=== PATIENT | female | born 1995 | race African-American/Black ===

== ENCOUNTER 2017-03-15 16:38 | Emergency (ER) | payer MEDICAID ==
[~2017-03-15] VITALS: Ht 157.5 cm; Wt 56.2 kg
[~2017-03-15 16:38] MED LIST: ALBUTEROL SULF8.5 GM INH; BACTRIM DS TAB1 EAC1 ORAL; CEPHALEXIN500 MG PO; CIPRO500 MG PO; DIFLUCAN100 MG ORAL; DIFLUCAN150 MG PO; DOXYCYCLINE HY100 M6 PO; FLUCONAZOLE150 MG ORAL; METROGEL-VAGINA70 G1 VAGIN; METRONIDAZOLE500 MG ORAL; NKM; PEPCID40 MG PO; PYRIDIUM100 MG ORAL; VIBRAMYCIN100 MG ORAL
[2017-03-15 18:09] VITALS: BP 107/69
[2017-03-15] MEDS ORDERED: ROBAXIN-750750 MG PO (18:40)
[2017-03-15] MEDS ORDERED: IBUPROFEN600 MG ORAL (18:40)
[2017-03-15 18:42] VITALS: BP 107/69
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
--- NOTE | 2017-03-16 12:12 | Diagnostic Imaging Report ---
Indication: Pain Findings: 3 views of the right elbow were obtained. No acute fractures, malalignment, erosions or periostitis are identified. Bone mineralization is within normal limits. Soft tissues are unremarkable. Impression: Negative examination of the elbow.
--- NOTE | 2017-03-16 13:28 | Diagnostic Imaging Report ---
Indications: hip pain Findings: Two views of the left hip were obtained. No acute fracture is demonstrated. Alignment of the hip is within normal limits. Soft tissues are unremarkable. Intrauterine device noted. Impression: Negative examination of the hip.
== END 2017-03-15 18:42 | disposition home or self-care (01) ==
LOC: EMR 17:19
DX: S70.02XA Contusion of left hip, initial encounter (principal); S16.1XXA Strain of muscle, fascia and tendon at neck level, initial encounter; S46.911A Strain of unspecified muscle, fascia and tendon at shoulder and upper arm level, right arm, initial encounter; J45.909 Unspecified asthma, uncomplicated; V43.52XA Car driver injured in collision with other type car in traffic accident, initial encounter; Y92.410 Unspecified street and highway as the place of occurrence of the external cause
CPT/HCPCS: 73502; 81025; 99284

== ENCOUNTER 2018-02-08 21:03 | Emergency (ER) | payer MEDICAID ==
[~2018-02-08 21:03] MED LIST changes: +IBUPROFEN600 MG ORAL; +ROBAXIN-750750 MG PO
--- NOTE | 2018-02-09 05:27 | Emergency Room Report ---
History of Present Illness General Chief Complaint: To Be Triaged Present Illness Allergies: Coded Allergies: No Known Allergies (Unverified , 01/22/13) Nursing Documentation-H Hx Asthma: Yes Medical Decision Making Diagnostic Impression: Primary Impression: Patient left without being seen ER Course Patient left without being seen Status: unchanged Disposition: LEFT W/OUT BEING SEEN Condition: Unknown [facility]errals: [facility]ERR[facility] ([facility]P) Jassi Campbell MD Feb 09, 2018 05:27
[2018-02-09] MEDS ORDERED: IBUPROFEN600 MG ORAL (16:03)
[2018-02-09] MEDS ORDERED: ROBAXIN-750750 MG PO (16:03)
== END 2018-02-08 21:30 | disposition left against medical advice (07) ==
LOC: EMR 21:30
DX: R07.9 Chest pain, unspecified (principal); Z53.21 Procedure and treatment not carried out due to patient leaving prior to being seen by health care provider

== ENCOUNTER 2018-02-09 14:47 | Emergency (ER) | payer MEDICAID ==
[~2018-02-09] VITALS: Ht 157.5 cm; Wt 45.4 kg
[2018-02-09 15:30] VITALS: BP 105/63
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
[2018-02-09] MEDS ORDERED: ROBAXIN-750750 MG PO (16:03)
[2018-02-09] MEDS ORDERED: IBUPROFEN600 MG ORAL (16:03)
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
== END 2018-02-09 16:55 | disposition home or self-care (01) ==
LOC: EMR 15:22
DX: S40.012A Contusion of left shoulder, initial encounter (principal); Y04.2XXA Assault by strike against or bumped into by another person, initial encounter; Y92.9 Unspecified place or not applicable; J45.909 Unspecified asthma, uncomplicated
CPT/HCPCS: 71045; 72070; 99284

== ENCOUNTER 2018-02-27 13:36 | Emergency (ER) | payer MEDICAID ==
[~2018-02-27] VITALS: Ht 157.5 cm; Wt 43.5 kg
--- NOTE | 2018-02-27 13:59 | Emergency Room Report ---
History of Present Illness General Chief Complaint: Wound Recheck/Suture Removal Source: Patient Present Illness [facility] Patient presented for wound check. Patient reportedly had sutures placed to her forehead approximate days ago. Patient denies any fever or severe headache. She denies any other complaints. Allergies: Coded Allergies: No Known Allergies (Unverified , 01/22/13) Patient History Past Medical History: see triage record Last Menstrual Period: 02/24/2018 Reviewed Nursing Documentation: PMH: Agreed; PSxH: Agreed Nursing Documentation-PMH Past Medical History: No History, Except For Hx Asthma: Yes Review of Systems All Other Systems: negative except mentioned in HPI Physical Exam Vital Signs Date Time Temp Pulse Resp B/P (MAP) Pulse Ox O2 Delivery O2 Flow Rate FiO2 02/27/18 13:39 98.6 86 16 98/66 97 Room Air 98.6 General Appearance: well appearing, no apparent distress, alert, GCS 15 Head: normocephalic, atraumatic ENT: hearing grossly normal, normal voice Neck: full range of motion, supple Respiratory: no respiratory distress, speaking full sentences Cardiovascular #1: normal inspection Gastrointestinal: normal inspection Musculoskeletal: no calf tenderness Neurologic: normal inspection, alert, oriented x3, responsive, 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 Differential diagnosis included was not limited to infected wound, nonhealed wound, neuroma, healed wound. Laceration appears to be well-healed. Sutures removed with forceps. The patient is advised follow-up as needed. Last Vital Signs Date Time Temp Pulse Resp B/P (MAP) Pulse Ox O2 Delivery O2 Flow Rate FiO2 02/27/18 13:39 98.6 86 16 98/66 97 Room Air 98.6 Status: improved Disposition: HOME, SELF-CARE Condition: Stable Bruce Willis MD Feb 27, 2018 13:59
[2018-02-27 14:10] VITALS: BP 98/66
[2018-02-27 14:11] VITALS: BP 98/66
== END 2018-02-27 14:13 | disposition home or self-care (01) ==
LOC: EMR 14:08
DX: S11.91XD Laceration without foreign body of unspecified part of neck, subsequent encounter (principal); X58.XXXD Exposure to other specified factors, subsequent encounter; Z48.02 Encounter for removal of sutures
CPT/HCPCS: 99281

== ENCOUNTER 2018-03-17 09:34 | Emergency (ER) | payer MEDICAID ==
[~2018-03-17] VITALS: Ht 160 cm; Wt 45.8 kg
[2018-03-17 10:01] VITALS: BP 107/71
--- NOTE | 2018-03-17 10:33 | Emergency Room Report ---
History of Present Illness General Chief Complaint: Upper Respiratory Illness Source: Patient Present Illness HPI This patient c/o 2-3 days of viral URI symptoms including sore throat, rhinitis , nasal congestion, non productive cough. Malaise, myalgias, possibly tactile fever. The patient has no vomiting, chest pain or SOB. No travel history, leg pain/swelling. Allergies: Coded Allergies: No Known Allergies (Unverified , 01/22/13) Patient History Last Menstrual Period: 03/14/18 Nursing Documentation-[facility] Hx Asthma: Yes Review of Systems Constitutional: Denies: fever Eye: Denies: acuity changes Respiratory: Denies: cough, shortness of breath Cardiovascular: Denies: chest pain Gastrointestinal: Denies: nausea, vomiting Skin: Denies: rash Neurological: Denies: headache Physical Exam Vital Signs Date Time Temp Pulse Resp B/P (MAP) Pulse Ox O2 Delivery O2 Flow Rate FiO2 03/17/18 09:37 98.2 68 18 107/71 97 Room Air 98.2 General Appearance: well appearing, no apparent distress Head: normocephalic, atraumatic ENT: hearing grossly normal, normal pharynx, normal voice, moist mucus membranes, nasal congestion Neck: full range of motion, supple Respiratory: no respiratory distress, speaking full sentences Musculoskeletal: no calf tenderness Neurologic: alert, normal gait Psychiatric: mood/affect normal Skin: no rash Medical Decision Making Diagnostic Impression: Primary Impression: Upper respiratory infection Last Vital Signs Date Time Temp Pulse Resp B/P (MAP) Pulse Ox O2 Delivery O2 Flow Rate FiO2 03/17/18 10:01 98.2 88 18 107/71 97 Room Air 98.2 Disposition: HOME, SELF-CARE Condition: Stable Marino Oswald M.D. Mar 17, 2018 10:33
[2018-03-17 11:10] VITALS: BP 110/60
== END 2018-03-17 11:12 | disposition home or self-care (01) ==
LOC: EMR 10:36
DX: J06.9 Acute upper respiratory infection, unspecified (principal); J45.909 Unspecified asthma, uncomplicated
CPT/HCPCS: 99282

== ENCOUNTER 2018-05-11 12:10 | Emergency (ER) | payer MEDICAID ==
[~2018-05-11] VITALS: Ht 157.5 cm; Wt 47.6 kg
[2018-05-11 12:20] VITALS: BP 106/62
[2018-05-11] MEDS ORDERED: IBUPROFEN600 MG ORAL (12:34)
[2018-05-11] MEDS ORDERED: NORCO 5-325 TA1 EACH ORAL (12:34)
[2018-05-11] MEDS ORDERED: Norco 5mg/325mg tab ORAL ONE (12:45)
[2018-05-11 13:20] VITALS: BP 132/68
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
== END 2018-05-11 13:20 | disposition home or self-care (01) ==
LOC: EMR 12:30
DX: S39.012A Strain of muscle, fascia and tendon of lower back, initial encounter (principal); V43.52XA Car driver injured in collision with other type car in traffic accident, initial encounter; Y92.410 Unspecified street and highway as the place of occurrence of the external cause; R51 Headache; J45.909 Unspecified asthma, uncomplicated
CPT/HCPCS: 99282

== ENCOUNTER 2019-04-05 16:45 | Emergency (ER) | payer MEDICAID ==
[~2019-04-05] VITALS: Ht 157.5 cm; Wt 49.9 kg
[~2019-04-05 16:45] MED LIST changes: +NORCO 5-325 TA1 EACH ORAL
[2019-04-05 16:59] VITALS: BP 110/70
--- NOTE | 2019-04-05 17:08 | NUR ---
ED Nurse Note: Patient walked into c/o vaginal soreness and pain, bleeding, burning sensation. patient reports she used raw vinegar for cleaning her vaginal area. Pt came in due to vaginal soreness, bleeding, burning sensation after using raw vinager for cleaning. 3 weeks ago.
--- NOTE | 2019-04-05 17:49 | Emergency Room Report ---
History of Present Illness General Chief Complaint: Female Urogenital Problems Source: Patient Present Illness HPI 23 YO female presents to the ED c/o vaginal burning sensation after using vinegar as a cleaning agent. Pt. reports She had no prior symptoms before using vinegar, she denies malodor or vaginal d/c. Pt. states immediately afterward she experienced, erythema, burning and itching. She attempted to relieve her symptoms with OTC vagisil cream which did not provide any symptomatic relief. Pt. denies fevers or chills. reports itching is severe and burning is 10/10 in severity. symptom onset was yesterday. She reports only significant history is a recent 3 weeks ago which was a pill without complications. Pt. denies fevers, chills, blisters, swollen tender lymph nodes or open wounds. Pt. denies hx of immune compromise, STI or current . Pt. states some dysuria. Allergies: Coded Allergies: No Known Allergies (Unverified , 01/22/13) Patient History Past Medical History: see triage record Past Surgical History: none Pertinent Family History: none Now: No - 3 weeks ago. Reviewed Nursing Documentation: PMH: Agreed; PSxH: Agreed Nursing Documentation-PMH Past Medical History: No History, Except For Hx Asthma: Yes Review of Systems All Other Systems: negative except mentioned in HPI Physical Exam Vital Signs Date Time Temp Pulse Resp B/P (MAP) Pulse Ox O2 Delivery O2 Flow Rate FiO2 04/05/19 16:59 98.8 73 16 110/70 100 Room Air Sp02 EP Interpretation: reviewed, normal General Appearance: no apparent distress, alert, GCS 15, non-toxic Head: normocephalic, atraumatic Eyes: bilateral eye normal inspection, bilateral eye PERRL ENT: hearing grossly normal, normal voice Neck: full range of motion Respiratory: lungs clear, normal breath sounds, speaking full sentences Cardiovascular #1: regular rate, rhythm Gastrointestinal: normal bowel sounds, non tender, soft Genitourinary: normal inspection, no CVA tenderness, adnexa normal, other - erythema to the mucous membranes of the vaginal vault, and the vulvula, severe sensitivity throughtout, no CMT. There are some excoriations noted. unable to determine d/c as pt. has monistat applied. Musculoskeletal: back normal, gait/station normal, normal range of motion, non- tender Neurologic: alert, oriented x3, responsive, motor strength/tone normal, sensory intact, normal gait, speech normal, grossly normal Psychiatric: judgement/insight normal Lymphatic: no adenopathy Medical Decision Making PA Attestation Dr. Campbell is my supervising Physician whom patient management has been discussed with. Diagnostic Impression: Primary Impression: Vaginitis and vulvovaginitis Additional Impressions: Chemical burn UTI (lower urinary tract infection) ER Course 23 YO female presents to the ED c/o vaginal burning sensation after using vinegar as a cleaning agent. Pt. reports She had no prior symptoms before using vinegar, she denies malodor or vaginal d/c. Pt. states immediately afterward she experienced, erythema, burning and itching. She attempted to relieve her symptoms with OTC vagisil cream which did not provide any symptomatic relief. Pt. denies fevers or chills. reports itching is severe and burning is 10/10 in severity. symptom onset was yesterday. She reports only significant history is a recent 3 weeks ago which was a pill without complications. Pt. denies fevers, chills, blisters, swollen tender lymph nodes or open wounds. Pt. denies hx of immune compromise, STI or current . Pt. states some dysuria. Ddx considered but are not limited to UTi , Pyelo, STI, Stone, Cystitis, vaginal laceration, vaginitis. Vital signs: are WNL, pt. is afebrile H& PE are most consistent with: Chemical Burn Vaginitis, and will r/o UTI as well. ORDERS: - UA labs are attached --- most indicative of contamination: presence of equal amounts of bacteria and squamous cells, no elevation in inflammatory markers, nitrite negative. ED INTERVENTIONS: - DISCHARGE: At this time pt. is stable for d/c to home. Will provide printed patient care instructions, and any necessary prescriptions. Care plan and follow up instructions have been discussed with the patient prior to discharge. discussed with the patient prior to discharge. Labs Test 04/05/19 17:13 Urine Color Yellow Urine Appearance Clear Urine pH 6.5 (4.5-8.0) Urine Specific [place] 1.015 (1.005-1.035) Urine Protein 2+ (NEGATIVE) Urine Glucose (UA) Negative (NEGATIVE) Urine Ketones Negative (NEGATIVE) Urine Blood 1+ (NEGATIVE) Urine Nitrite Negative (NEGATIVE) Urine Bilirubin Negative (NEGATIVE) Urine Urobilinogen 1 MG/DL (0.0-1.0) Urine Leukocyte Esterase 1+ (NEGATIVE) Urine RBC 0-2 /HPF (0 - 2) Urine WBC 2-4 /HPF (0 - 2) Urine Squamous Epithelial Cells Few /LPF (NONE/OCC) Urine Bacteria Moderate /HPF (NONE) Last Vital Signs Date Time Temp Pulse Resp B/P (MAP) Pulse Ox O2 Delivery O2 Flow Rate FiO2 04/05/19 16:59 98.8 73 16 110/70 (83) 100 Room Air Disposition: HOME, SELF-CARE Condition: Stable Scripts Fluconazole (FLUCONAZOLE) 100 Mg Tablet 100 MG ORAL DAILY for 3 Days, #3 TAB 0 Refills Prov: Ama Mariano 04/05/19 Metronidazole* (FLAGYL*) 500 Mg Tablet 500 MG ORAL BID for 5 Days, #10 TAB Prov: Ama Mariano 04/05/19 Referrals: [facility],REFERRING (PCP) Departure Forms: Return to Work Return to Work Date: Apr 07, 2019 Work Restrictions: None Return to Full Activity: Apr 07, 2019 Patient Instructions: Vaginitis, Urinary Tract Infection Additional Instructions: Take medications as directed. Follow up with a Primary Care Provider in 3-5 days, even if your symptoms have resolved. --Please review list of primary care clinics, if you do not already have a primary care provider Return sooner to ED if new symptoms occur, or current symptoms become worse. - Please note that this Emergency Department Report was dictated using [employer] beamer technology software, occasionally this can lead to erroneous entry secondary to interpretation by the dictation equipment. Ama Mariano Apr 05, 2019 17:49
[2019-04-05 17:56] LABS: APPEARANCE,URINE CLEAR; BILIRUBIN, URINE NEGATIVE (NEGATIVE); GLUCOSE, URINE (UA) NEGATIVE (NEGATIVE); KETONES,URINE NEGATIVE (NEGATIVE); LEUKOCYTE ESTERASE ,URINE 1+ (NEGATIVE); NITRITE,URINE NEGATIVE (NEGATIVE); PH,URINE 6.5 (4.5-8.0); PROTEIN,URINE 2+ (NEGATIVE); UROBILINOGEN,URINE 1 MG/DL (0.0-1.0)
[2019-04-05 17:59] LABS: COLOR,URINE YELLOW
[2019-04-05] MEDS ORDERED: FLUCONAZOLE100 MG ORAL (19:20)
[2019-04-05] MEDS ORDERED: METRONIDAZOLE500 MG ORAL (19:20)
[2019-04-05 19:33] VITALS: BP 110/70
--- NOTE | 2019-04-05 19:33 | NUR ---
ER DISCHARGE NOTE: Patient is cleared to be discharged per TACO GRANT , pt is aox4, on room air, with stable vital signs. pt was given dc and prescription instructions, pt was able to verbalize understanding, pt id band removed without complications. pt is able to ambulate with steady gait. pt took all belongings.
== END 2019-04-05 19:25 | disposition home or self-care (01) ==
LOC: EMR 17:11
DX: N76.0 Acute vaginitis (principal); N39.0 Urinary tract infection, site not specified; T28.3XXA Burn of internal genitourinary organs, initial encounter; T79.9XXA Unspecified early complication of trauma, initial encounter; X08.8XXA Exposure to other specified smoke, fire and flames, initial encounter; Y92.9 Unspecified place or not applicable
CPT/HCPCS: 81003; 87086; 99283

== ENCOUNTER 2019-11-16 13:56 | Emergency (ER) | payer MEDICAID ==
[~2019-11-16] VITALS: Ht 157.5 cm; Wt 45.4 kg
[~2019-11-16 13:56] MED LIST changes: +FLUCONAZOLE100 MG ORAL
[2019-11-16 14:30] VITALS: BP 115/70
--- NOTE | 2019-11-16 14:30 | NUR ---
ED Nurse Note: Pt walked into ED w/ c/o lower back pain 10/10 for 4 days. Pt states it is unknown reason. Pt denies numbness or tingling. Pt is alert and orientedx4, ambulatory. No wounds. Pt also states she has history of asthma and feels as if wheezing. Pt lungs bilaterally clear to auscultation.
--- NOTE | 2019-11-16 15:07 | Emergency Room Report ---
History of Present Illness General Chief Complaint: Back Pain-No Injury Present Illness HPI 24-year-old female with no significant past medical history here complaining of upper back pain for several weeks after lifting her 3-year-old. Also asked for a refill for asthma medication. Actively not wheezing. Denies chest pain shortness of breath. Has not taken medication for symptom relief. Denies . Denies any urinary symptoms, reports that last menstrual period started yesterday. Denies any fall or injury. No tingling numbness. No bony tenderness noted. COVID-19 risk:Travel to affect: No Has patient experienced de souza: No Allergies: Coded Allergies: No Known Allergies (Unverified , 01/22/13) Patient History Past Medical History: see triage record Past Surgical History: none Pertinent Family History: none Now: No - 11/13/19 Immunizations: UTD Reviewed Nursing Documentation: PMH: Agreed; PSxH: Agreed Nursing Documentation-PMH Hx Asthma: Yes Review of Systems All Other Systems: negative except mentioned in HPI Physical Exam Vital Signs Date Time Temp Pulse Resp B/P (MAP) Pulse Ox O2 Delivery O2 Flow Rate FiO2 11/16/19 14:04 98.2 68 16 114/72 (86) 98 Room Air Sp02 EP Interpretation: reviewed, normal General Appearance: no apparent distress, alert, GCS 15, non-toxic Head: normocephalic, atraumatic Eyes: bilateral eye normal inspection, bilateral eye PERRL ENT: hearing grossly normal, normal pharynx, no angioedema, normal voice Neck: full range of motion, supple/symm/no masses Respiratory: chest non-tender, lungs clear, normal breath sounds, no rhonchi, no wheezing, speaking full sentences Cardiovascular #1: regular rate, rhythm, no edema, no murmur, normal capillary refill Gastrointestinal: normal bowel sounds, non tender, soft, non-distended, no guarding, no rebound Genitourinary: no CVA tenderness Musculoskeletal: back normal, no calf tenderness Neurologic: alert, motor strength/tone normal, oriented x3, sensory intact, responsive, speech normal Psychiatric: judgement/insight normal, memory normal, mood/affect normal, no suicidal/homicidal ideation Skin: no rash Lymphatic: no adenopathy Medical Decision Making PA Attestation All my diagnosis and treatment plans were reviewed ad discussed with my supervising physician Dr. Vega Diagnostic Impression: Primary Impression: Thoracic myofascial strain Additional Impression: Asthma ER Course 24-year-old female with no significant past medical history here complaining of upper back pain for several weeks after lifting her 3-year-old. Also asked for a refill for asthma medication. Actively not wheezing. Denies chest pain shortness of breath. Has not taken medication for symptom relief. Denies . Denies any urinary symptoms, reports that last menstrual period started yesterday. Denies any fall or injury. No tingling numbness. No bony tenderness noted. Ddx considered but are not limited to : thoracic spine fracture, thoracic spine strain, thoracic spine sprain, radiculopathy. Vital signs: are WNL, pt. is afebrile H&PE are most consistent with: thoracic strain, medication refill for asthma ORDERS: Albuterol, Robaxin, lidocaine patch, Motrin ED INTERVENTIONS: None required at this time. DISCHARGE: At this time pt. is stable for d/c to home. Will provide printed patient care instructions, and any necessary prescriptions. Care plan and follow up instructions have been discussed with the patient prior to discharge. Take medication as directed, follow primary care provider, if worsening symptoms return to the emergency room Last Vital Signs Date Time Temp Pulse Resp B/P (MAP) Pulse Ox O2 Delivery O2 Flow Rate FiO2 11/16/19 14:30 98.2 79 16 115/70 98 Room Air Disposition: HOME, SELF-CARE Condition: Stable Scripts Albuterol Sulfate (VENTOLIN HFA) 18 Gm Hfa.aer.ad 2 PUFFS INH EVERY 6 HOURS, #18 GM 0 Refills Prov: Estefania Nair 11/16/19 Lidocaine Patch* (Lidoderm Patch*) 1 Each Adh..patch 1 PATCH TOPIC DAILY, #30 PATCH Patch(es) may remain in place for up to 12 hours in any 24-hour period. Prov: Estefania Nair 11/16/19 Ibuprofen* (MOTRIN*) 600 Mg Tablet 600 MG ORAL THREE TIMES A DAY, #30 TAB 0 Refills Prov: Estefania Nair 11/16/19 Methocarbamol* (ROBAXIN-500*) 500 Mg Tablet 500 MG ORAL TID PRN for For Pain, #15 TAB 0 Refills Prov: Estefania Nair 11/16/19 Patient Instructions: Asthma, Adult, Thoracic Strain, [id number] Additional Instructions: Take medication as directed, follow-up primary care provider, if worsening symptoms return to emergency room Estefania Nair Nov 16, 2019 15:07
[2019-11-16] MEDS ORDERED: LIDODERM700 M1 TOPIC (15:13)
[2019-11-16] MEDS ORDERED: IBUPROFEN600 MG ORAL (15:13)
[2019-11-16] MEDS ORDERED: VENTOLIN HFA18 GM INH (15:13)
[2019-11-16] MEDS ORDERED: ROBAXIN-500MG ORAL (15:13)
--- NOTE | 2019-11-16 15:18 | NUR ---
ER DISCHARGE NOTE: Patient is cleared to be discharged per ERMD, pt is aox4, on room air, with stable vital signs. pt was given dc and prescription instructions, pt was able to verbalize understanding, pt id band removed. pt is able to ambulate with steady gait. pt took all belongings. Pt educated regarding robaxin.
[2019-11-16 15:19] VITALS: BP 119/76
== END 2019-11-16 15:18 | disposition home or self-care (01) ==
LOC: EMR 15:10
DX: S29.012A Strain of muscle and tendon of back wall of thorax, initial encounter (principal); J45.909 Unspecified asthma, uncomplicated; X50.0XXA Overexertion from strenuous movement or load, initial encounter; Y92.9 Unspecified place or not applicable
CPT/HCPCS: 99282

== ENCOUNTER 2020-03-31 20:07 | Emergency (ER) | payer MEDICAID ==
[~2020-03-31] VITALS: Ht 157.5 cm; Wt 44.9 kg
[~2020-03-31 20:07] MED LIST changes: +LIDODERM700 M1 TOPIC; +ROBAXIN-500MG ORAL; +VENTOLIN HFA18 GM INH
--- NOTE | 2020-03-31 20:15 | NUR ---
ED Nurse Note: AMBULATED TO ED C/O ABDOMINAL PAIN X 0800. REPORTS NAUSEA VOMITTING ETOH LAST NIGHT AND POSITIVE URINE IN AM; UNKNOWN GESTATION; DENIES DIARRHEA AND VAGINAL BLEEDING. AO4 AMBULATES WITH STEADY GAIT. CHANGED INTO GOWN; ATTACHED TO MONITOR. ALL SAFETY MEASURES MET.
[2020-03-31 20:30] VITALS: BP 113/72
--- NOTE | 2020-03-31 20:30 | NUR ---
ED Nurse Note: IV ACCESS ESTABLISHED. BLOOD COLLECTED; SENT DOWN TO LAB. UNABLE TO COLLECT URINE AT THIS TIME; PT STATES WILL PROVIDE WHEN ABLE.
[2020-03-31 21:00] VITALS: BP 110/72
[2020-03-31 21:04] LABS: ANION GAP 16 mmol/L (5-15); BLOOD UREA NITROGEN 16 mg/dL (7-18); CALCIUM 10.3 MG/DL (8.5-10.1); CARBON DIOXIDE 24 MMOL/L (21-32); CHLORIDE 101 MMOL/L (98-107); CREATININE 0.9 MG/DL (0.55-1.30); POTASSIUM 3.6 MMOL/L (3.5-5.1); SODIUM 141 MMOL/L (136-145)
--- NOTE | 2020-03-31 21:07 | Emergency Room Report ---
History of Present Illness General Chief Complaint: Vomiting Source: Patient Present Illness HPI Disclaimer: Please note that this report is being documented using DRAGON technology. This can lead to erroneous entry secondary to incorrect interpretation by the dictating instrument. HPI: 24-year-old comes in for evaluation of abdominal pain and vomiting. Patient went to her [facility] clinic today for colposcopy but complained of nausea and vomiting before the procedure and a urine test was done which returned positive. LMP was 2 months ago. Denies vaginal bleeding, vaginal discharge, dysuria, hematuria. She has been nauseated and vomiting all day. Reports epigastric pain and believes she had food poisoning because she ate some fast food last night. Denies fever, chills, chest pain, shortness of breath. No denies medical history. No known sick contacts otherwise. Drank a small amount of alcohol last night PMH: Asthma PSH: Reviewed Allergies: Denies Social Hx: Social alcohol use Allergies: Coded Allergies: No Known Allergies (Unverified , 01/22/13) COVID-19 Screening Contact w/high risk pt: No Recent Travel to affected area: No Experienced COVID-19 symptoms?: No COVID-19 Testing performed PATTERN REPAIR PERSON: No Patient History Now: Yes : 2 Para: 1 Nursing Documentation-PMH Hx Asthma: Yes Review of Systems All Other Systems: negative except mentioned in HPI Physical Exam Vital Signs Date Time Temp Pulse Resp B/P (MAP) Pulse Ox O2 Delivery O2 Flow Rate FiO2 03/31/20 20:10 71 18 113/72 (86) 99 Room Air General: Awake and alert, no acute distress HEENT: NC/AT. EOMI. Cardiovascular: RRR. S1 and S2 normal. No murmur appreciated Resp: Normal work of breathing. No cough, wheezing or crackles appreciated Abdomen: Abdomen is soft, nondistended. Tenderness in the epigastrium without mass. Negative Broussard's. No tenderness in right lower quadrant. Mild tenderness left lower quadrant. Skin: Intact. No abrasions, laceration or rash over the exposed skin MSK: Normal tone and bulk. Moving all extremities. No obvious deformity. Neuro: Awake and alert. Mentating appropriately. Medical Decision Making Diagnostic Impression: Primary Impression: Vomiting ER Course This a 24-year-old female presenting for evaluation of nausea and abdominal pain and vomiting of 1 days duration. Reports positive urine test earlier to this morning at clinic. Differential includes was not limited to gastritis, gastroenteritis, pancreatitis, hepatitis, cholecystitis, appendicitis, food poisoning, ectopic , hyperemesis, complication to name a few. Labs were obtained and returned within normal limits including a negative hCG both urine and blood. Patient symptoms were resolved with Zofran and IV fluids. No indication for advanced imaging at this time. Likely gastritis and possible food poisoning. We discharged with additional dose of Zofran and follow-up with her PMD and [facility] next week. Instructed to return to the emergency department new or worsening symptoms. Laboratory Tests Test 03/31/20 20:20 03/31/20 21:30 White Blood Count 5.6 K/UL (4.8-10.8) Red Blood Count 4.29 M/UL (4.20-5.40) Hemoglobin 12.4 G/DL (12.0-16.0) Hematocrit 38.4 % (37.0-47.0) Mean Corpuscular Volume 90 FL (80-99) Mean Corpuscular Hemoglobin 29.0 PG (27.0-31.0) Mean Corpuscular Hemoglobin Concent 32.3 G/DL (32.0-36.0) Red Cell Distribution Width 12.2 % (11.6-14.8) Platelet Count 167 K/UL (150-450) Mean Platelet Volume 10.1 FL (6.5-10.1) Neutrophils (%) (Auto) 85.3 % (45.0-75.0) H Lymphocytes (%) (Auto) 11.5 % (20.0-45.0) L Monocytes (%) (Auto) 2.8 % (1.0-10.0) Eosinophils (%) (Auto) 0.0 % (0.0-3.0) Basophils (%) (Auto) 0.4 % (0.0-2.0) Sodium Level 141 MMOL/L (136-145) Potassium Level 3.6 MMOL/L (3.5-5.1) Chloride Level 101 MMOL/L (98-107) Carbon Dioxide Level 24 MMOL/L (21-32) Anion Gap 16 mmol/L (5-15) H Blood Urea Nitrogen 16 mg/dL (7-18) Creatinine 0.9 MG/DL (0.55-1.30) Estimated Glomerular Filtration Rate > 60 mL/min (>60) Glucose Level 109 MG/DL (74-106) H Calcium Level 10.3 MG/DL (8.5-10.1) H Total Bilirubin 0.5 MG/DL (0.2-1.0) Aspartate Amino Transferase (AST) 22 U/L (15-37) Alanine Aminotransferase (ALT) 25 U/L (12-78) Alkaline Phosphatase 56 U/L (46-116) Total Protein 8.9 G/DL (6.4-8.2) H Albumin 5.1 G/DL (3.4-5.0) H Globulin 3.8 g/dL Albumin/Globulin Ratio 1.3 (1.0-2.7) Lipase 60 U/L (73-393) L Human Chorionic Gonadotropin, Quant 2 mIU/mL (1-6) Urine Color Pale yellow Urine Appearance Clear Urine pH 6 (4.5-8.0) Urine Specific [place] 1.025 (1.005-1.035) Urine Protein 2+ (NEGATIVE) H Urine Glucose (UA) Negative (NEGATIVE) Urine Ketones 4+ (NEGATIVE) H Urine Blood Negative (NEGATIVE) Urine Nitrite Negative (NEGATIVE) Urine Bilirubin Negative (NEGATIVE) Urine Urobilinogen Normal MG/DL (0.0-1.0) Urine Leukocyte Esterase Negative (NEGATIVE) Urine RBC Pending Urine WBC Pending Urine Squamous Epithelial Cells Pending Urine Bacteria Pending Urine HCG, Qualitative Negative (NEGATIVE) Last Vital Signs Date Time Temp Pulse Resp B/P (MAP) Pulse Ox O2 Delivery O2 Flow Rate FiO2 03/31/20 20:30 71 18 113/72 99 Room Air Disposition: HOME, SELF-CARE Condition: Stable Scripts Ondansetron Odt* (ZOFRAN ODT*) 4 Mg Tab.rapdis 4 MG BC EVERY 6 HOURS PRN for Nausea & Vomiting, #20 TAB 0 Refills Prov: Darvin Angela MD 03/31/20 Referrals: NON PHYSICIAN (PCP) Darvin Angela MD Mar 31, 2020 21:07
[2020-03-31 21:10] LABS: ALANINE AMINOTRANSFERASE 25 U/L (12-78); ALBUMIN 5.1 G/DL (3.4-5.0); ALBUMIN/GLOBULIN RATIO 1.3 (1.0-2.7); ALKALINE PHOSPHATASE 56 U/L (46-116); ASPARTATE AMINO TRANSFERASE 22 U/L (15-37); BILIRUBIN,TOTAL 0.5 MG/DL (0.2-1.0)
[2020-03-31 21:18] LABS: HEMATOCRIT 38.4 % (37.0-47.0); HEMOGLOBIN 12.4 G/DL (12.0-16.0); MEAN CORPUSCULAR VOLUME 90 FL (80-99); NEUTROPHILS % (AUTO) 85.3 % (45.0-75.0); PLATELET COUNT 167 K/UL (150-450); RED BLOOD COUNT 4.29 M/UL (4.20-5.40); RED CELL DISTRIBUTION WIDTH 12.2 % (11.6-14.8); WHITE BLOOD COUNT 5.6 K/UL (4.8-10.8)
[2020-03-31 21:19] LABS: BASOPHILS % (AUTO) 0.4 % (0.0-2.0); LYMPHOCYTES % (AUTO) 11.5 % (20.0-45.0); MONOCYTES % (AUTO) 2.8 % (1.0-10.0)
--- NOTE | 2020-03-31 21:30 | NUR ---
ED Nurse Note: URINE COLLECTED; SENT DOWN TO LAB.
[2020-03-31] MEDS ORDERED: ONDANSETRON ODT4 MG BC (21:32)
--- NOTE | 2020-03-31 21:45 | NUR ---
ED Nurse Note: Patient resting in bed with no acute distress. Patient denies pain. States nausea dissipated after medication but is midly returning. Administered antiemetic as ordered per ERMD.
[2020-03-31 22:27] LABS: APPEARANCE,URINE CLEAR; BILIRUBIN, URINE NEGATIVE (NEGATIVE); COLOR,URINE PALE YELLOW; GLUCOSE, URINE (UA) NEGATIVE (NEGATIVE); KETONES,URINE 4+ (NEGATIVE); LEUKOCYTE ESTERASE ,URINE NEGATIVE (NEGATIVE); NITRITE,URINE NEGATIVE (NEGATIVE); PH,URINE 6 (4.5-8.0); PROTEIN,URINE 2+ (NEGATIVE); UROBILINOGEN,URINE NORMAL MG/DL (0.0-1.0)
[2020-03-31 22:45] VITALS: BP 105/73
--- NOTE | 2020-03-31 22:45 | NUR ---
ER DISCHARGE NOTE: Patient is cleared to be discharged per ERMD, pt is aox4, on room air, with stable vital signs. pt was given dc and prescription instructions, pt was able to verbalize understanding, pt id band and iv site removed without complications. pt is able to ambulate with steady gait. pt took all belongings.
[2020-04-04] MEDS ORDERED: DICYCLOMINE HCL10 MG ORAL (12:20)
== END 2020-03-31 22:45 | disposition home or self-care (01) ==
LOC: EMR 20:30
DX: O21.9 Vomiting of pregnancy, unspecified (principal); Z3A.00 Weeks of gestation of pregnancy not specified
CPT/HCPCS: 36415; 80053; 81003; 81025; 83690; 84702; 85025; 96361; 96374; J2405; J7030; Z7502; 99284

== ENCOUNTER 2020-10-11 17:14 | Emergency (ER) | payer MEDICAID ==
[~2020-10-11] VITALS: Ht 157.5 cm; Wt 45.4 kg
[~2020-10-11 17:14] MED LIST changes: +DICYCLOMINE HCL10 MG ORAL; +ONDANSETRON ODT4 MG BC
[2020-10-11 17:28] VITALS: BP 107/64
--- NOTE | 2020-10-11 17:31 | NUR ---
ED Nurse Note: pt stated she just got her eyebrows arched at a nail place and didn't notice that she had a small scratch above her right eye. scratch is about 1/4 inch, no bleeding. pt stated she was scared that the utensils the person was using was dirty and afraid it would get infected.
--- NOTE | 2020-10-11 17:34 | Emergency Room Report ---
History of Present Illness General Chief Complaint: Laceration Source: Patient Present Illness HPI Disclaimer: Please note that this report is being documented using DR[employer]ON technology. This can lead to erroneous entry secondary to incorrect interpretation by the dictating instrument. HPI: 24-year-old female presents for evaluation of facial laceration. She was getting her eyebrows trimmed and scratched by the the scissors. Mild bleeding controlled prior to arrival. Came to get wound evaluated. No active bleeding. Minimal pain. No recent tetanus updated. No other injuries or complaints. PMH: Reviewed PSH: Reviewed Allergies: Reviewed Social Hx: Reviewed Allergies: Coded Allergies: No Known Allergies (Unverified , 01/22/13) COVID-19 Screening Contact w/high risk pt: No Recent Travel to affected area: No Experienced COVID-19 symptoms?: No COVID-19 Testing performed MOLD UNLOADER: No Patient History Now: No Nursing Documentation-PMH Past Medical History: No History, Except For Hx Asthma: Yes Review of Systems All Other Systems: negative except mentioned in HPI Physical Exam Vital Signs Date Time Temp Pulse Resp B/P (MAP) Pulse Ox O2 Delivery O2 Flow Rate FiO2 10/11/20 17:21 98.4 88 16 107/64 (78) 99 Room Air General: Awake and alert, no acute distress HEENT: NC/AT. EOMI. Resp: Normal work of breathing Skin: Intact. 1 cm superficial scratch just into the dermis across the right eyebrow. MSK: Normal tone and bulk. Moving all extremities. No obvious deformity. Neuro: Awake and alert. Mentating appropriately Medical Decision Making Diagnostic Impression: Primary Impression: Superficial laceration of face ER Course Patient presents for evaluation of facial laceration. Very minor scratch across the eyebrow that is now hemostatic. Nothing to close. Tetanus updated. Washed out with soap and water. Bandage applied. Routine wound care instructions provided. Stable for outpatient follow-up. Last Vital Signs Date Time Temp Pulse Resp B/P (MAP) Pulse Ox O2 Delivery O2 Flow Rate FiO2 10/11/20 17:28 98.4 16 107/64 99 Room Air 10/11/20 17:21 88 Disposition: HOME, SELF-CARE Condition: Stable Patient Instructions: Nonsutured Laceration Care Additional Instructions: Tetanus was updated today. Please follow-up with your primary care doctor in the next 1 to 3 days to discuss this emergency department visit and for reevaluation. If you have any new or worsening symptoms please return to the emergency department for reevaluation. Please note that this report is being documented using [employer] technology. This can lead to erroneous entry secondary to incorrect interpretation by the dictating instrument. Darvin Angela MD Oct 11, 2020 17:34
[2020-10-11] MEDS ORDERED: Tetanus/Diptheria/Pertussis IM ONE (17:45)
--- NOTE | 2020-10-11 17:45 | NUR ---
ER DISCHARGE NOTE: Patient is cleared to be discharged per ERMD, pt is aox4, on room air, with stable vital signs. pt was given dc instructions, pt was able to verbalize understanding. pt is able to ambulate with steady gait. pt took all belongings.
== END 2020-10-11 17:46 | disposition home or self-care (01) ==
LOC: EMR 17:35
DX: S01.111A Laceration without foreign body of right eyelid and periocular area, initial encounter (principal); J45.909 Unspecified asthma, uncomplicated; W45.8XXA Other foreign body or object entering through skin, initial encounter; Y93.89 Activity, other specified; Y92.9 Unspecified place or not applicable; Z79.899 Other long term (current) drug therapy
CPT/HCPCS: 90471; 90715; Z7502; 99282